=== PATIENT | female | born 1965 | race Two or more races ===

== ENCOUNTER 2021-01-16 21:02 | Emergency (ER) | payer SELFPAY ==
[~2021-01-16] VITALS: Ht 144.8 cm; Wt 94.9 kg
[2021-01-16 21:29] VITALS: BP 147/75
== END 2021-01-16 22:19 | disposition home or self-care (01) ==
LOC: ER 21:09
DX: M25.562 Pain in left knee (principal); M25.561 Pain in right knee; E66.9 Obesity, unspecified; Z68.42 Body mass index [BMI] 45.0-49.9, adult; F17.210 Nicotine dependence, cigarettes, uncomplicated